=== PATIENT | female | born 1980 | race Caucasian/White ===

== ENCOUNTER 2020-09-23 08:40 | Emergency (ER) | payer SELFPAY ==
[2020-09-23] MEDS ORDERED: AMOXICILLIN500 M2 PO ×3 (08:56→11:22)
[2020-09-23 09:11] VITALS: BP 118/77
== END 2020-09-23 09:30 | disposition home or self-care (01) | DRG 159 ==
LOC: ED 08:40
DX: K08.89 Other specified disorders of teeth and supporting structures (principal)